=== PATIENT | male | born 1975 | race Caucasian/White ===

== ENCOUNTER 2017-01-11 13:31 | Emergency (ER) | payer OTHER ==
[2017-01-11 13:39] VITALS: BP 156/99
[2017-01-11] MEDS ORDERED: IBUPROFEN 400 MG TABLET PO STA (13:53)
--- NOTE | 2017-01-11 13:56 | ED Physician Documentation ---
History of Present Illness - Stated complaint Stated Complaint: LEFT CALF PAIN - Chief complaint Chief Complaint: Ext Problem - Additonal information Additional information: hx from pt 41 [address] [place] male playing volleyball felt a snap to his midial mid calf severe pain cant walk Review of Systems Musculoskeletal: reports: Pain with weight bearing PD PAST MEDICAL HISTORY - Past Medical History Past Medical History: Yes Cardiovascular: Hypertension - Past Surgical History Past Surgical History: No - Present Medications Home Medications: Ambulatory Orders Medication Instructions Recorded Confirmed Lisinopril 20 mg ORAL DAILY 01/11/17 01/11/17 - Allergies Allergies/Adverse Reactions: Allergies Allergy/AdvReac Type Severity Reaction Status Date / Time No Known Drug Allergies Allergy Verified 01/11/17 13:39 - Social History Does the pt smoke?: No Smoking Status: Never smoker Does the pt have substance abuse?: No PD ED PE NORMAL - Vitals Vital signs reviewed: Yes - Extremities Extremities: Other (LLE: achilles intact, nl white test, TTP with muscle defect distal medial distal gastroc mm, cmpt soft, MSV intact) Results - Vitals Vitals: Vital Signs - 24 hr 01/11/17 13:36 Temperature 36.7 C Heart Rate 111 H Respiratory 16 Rate Blood Pressure 156/99 H O2 Saturation 99 Oxygen O2 Source Room air Departure - Departure Disposition: 01 Home, Self Care Clinical Impression: Gastrocnemius muscle rupture Qualifiers: Encounter type: initial encounter Laterality: left Qualified Code(s): S86.112A - Strain of other muscle(s) and tendon(s) of posterior muscle group at lower leg level, left leg, initial encounter Condition: Good Instructions: Gastrocnemius Muscle Tear Follow-Up: STEPHANIE Sy [Provider Group] (orthopedics next week ) Comments: The exam indicates you did not rupture your Achilles tendon but rather ruptured the medial calf muscle. This will likely heal on its own - physical therapy will help you heal faster It is unlikely you will need surgery but please follow up with orthopedics at [facility] for further care next week Motrin tylenol and ice as needed for the pain Use the crutches - no weight bearing for at least a week, then may advance as tolerated if OK with orthopedics Also please get your blood pressure rechecked when you feel better - it was high today Forms: Activity restrictions
[2017-01-11] MEDS ORDERED: IBUPROFEN 800 MG TABLET PO ONE (14:01)
== END 2017-01-11 14:11 | disposition home or self-care (01) ==
LOC: ED 13:31
DX: S86.112A Strain of other muscle(s) and tendon(s) of posterior muscle group at lower leg level, left leg, initial encounter (principal); X58.XXXA Exposure to other specified factors, initial encounter; Y93.68 Activity, volleyball (beach) (court); I10 Essential (primary) hypertension
CPT/HCPCS: 99283; A9270

== ENCOUNTER 2017-03-12 12:00 | Outpatient (CLI) | payer OTHER ==
--- NOTE | 2017-03-12 14:38 | MRI Report ---
EXAM: LEFT CALF/TIBIA MRI WITHOUT CONTRAST EXAM DATE: 03/12/2017 01:43 PM. CLINICAL HISTORY: Volume on injury. Torn left gastrocnemius. Calf pain and swelling. COMPARISON: Ankle MRI performed the same date. TECHNIQUE: Multiplanar, multisequence T1-weighted and fluid-sensitive sequences of the calf/tibia wit hout contrast. Other: None. FINDINGS: Bones: Marrow signal appears normal. No fractures are identified. No evidence of stress reaction. Musculotendinous structures: There is thickening and increased signal involving the medial head gastr ocnemius tendon at the distal musculotendinous junction with tiny foci of fluid signal. Associated in creased T2 signal within the distal fibers of the medial head gastrocnemius muscle. The underlying so leus musculature as well as the lateral head gastrocnemius are normal. Remaining musculotendinous str uctures appear normal. No muscle atrophy or fatty replacement. IMPRESSION: 1. Mild strain and low-grade partial tear at the distal musculotendinous junction of the medial head gastrocnemius. Remaining visualized gastrocnemius and soleus musculature and Achilles tendon appear i ntact. [facility] MUSCULOSKELETAL RADIOLOGY SECTION Referring Provider Line: [phone] SITE ID: [id number]
--- NOTE | 2017-03-12 16:41 | MRI Report ---
EXAM: LEFT ANKLE/HINDFOOT MRI WITHOUT CONTRAST EXAM DATE: 03/12/2017 01:43 PM. CLINICAL HISTORY: Torn left gastrocnemius. COMPARISON: Left calf MRI performed the same date. TECHNIQUE: Multiplanar, multisequence T1-weighted and fluid-sensitive sequences of the ankle/hindfoot without contrast. Other: None. FINDINGS: Bones and articular surfaces: No significant ankle joint effusion. No osteochondral lesions. No signi ficant articular cartilage defects are seen. Tiny subcortical cyst formation at the posterior margin of the calcaneus. Tiny focus of subchondral edema at the tibial plafond. No overlying articular carti cassy abnormality. Musculotendinous structures: The Achilles tendon and plantar fascia appear intact. Small volume of fl uid associated with the tibialis posterior tendon. Remaining anterior, posterior and posterolateral a nkle tendons appear intact. No muscle atrophy or fatty replacement within the [id number]. Ligaments: The anterior and posterior talofibular, calcaneofibular and deltoid ligaments appear intac t. IMPRESSION: 1. Mild tibialis posterior tenosynovitis. [facility] MUSCULOSKELETAL RADIOLOGY SECTION Referring Provider Line: [phone] SITE ID: [id number]
== END 2017-03-12 12:01 | disposition home or self-care (01) ==
LOC: DI 12:00
PROVIDERS: ATTEND Family Medicine
DX: S86.112A Strain of other muscle(s) and tendon(s) of posterior muscle group at lower leg level, left leg, initial encounter (principal); M65.862 Other synovitis and tenosynovitis, left lower leg

== ENCOUNTER 2023-11-13 10:03 | Outpatient (CLI) | payer OTHER ==
--- NOTE | 2023-11-13 11:01 | Sleep Patient Instructions ---
Sleep Center Visit Summary - Patient Visit Information Reason for Visit: Initial consultation - Patient Instructions Additional Instructions: You will continue with CPAP therapy with pressure changed to 10-14 cmH2O. Please let us know if the pressure change is uncomfortable and we can make further adjustments of the pressure. A supply prescription will be updated with your DME supplier. I have added an order to update your PAP machine. Please call the office to schedule a compliance follow up once you get your new device. I have also added a mask refitting for the full face mask. Please follow up with the sleep care office one month after obtaining new device. - Clinic Information Contact: [facility] [address] [place] [address] [email or web address] T: [phone]
--- NOTE | 2023-11-13 11:08 | SLEEP CARE CONSULTATION ---
Information from patient questionnaire entered by Gamaliel Medina. I have reviewed and concur with the information entered by Gamaliel Medina. This document represents the service I personally performed and the decisions made by me, Molly Patten ARNP. History of Present Illness Service Date and Time: 11/13/2023 1003 Reason for Visit: New patient, Previously diagnosed sleep apnea, sleep apnea on CPAP therapy Chief Complaint: reports: Snoring Date of Onset: 3 - 5 min Usual bedtime: 10:00 alison Time it takes to fall asleep: 30 min Snores at night: Yes Observed to quit breathing while asleep: Yes Sleeps alone due to snoring: Yes Number of times waking at night: Don't know Reasons for waking at night: reports: Snoring Toss, Turn, or Twitch while sleeping: Yes Recalls having dreams: No Usually gets out of bed at: 8:00 Feels refreshed in the morning: Yes Morning headache: No Sleepy or fatigued during the day: Yes Ever fallen asleep while driving: No Takes day naps: No Dreams during day naps: No Prior sleep studies: Yes Year and Where: 2015 [facility] Type of Sleep Study: Polysomnography Additional HPI information: EVANGELINA AMES was previously diagnosed to have moderate, AHI 15.2, obstructive sleep apnea-hypopnea syndrome in 2016 through [facility] and comes in today to establish care for CPAP therapy. He has not had a follow up with sleep provider since 2016. He tried to get a mask change through his DME and had to re-establish care with sleep provider. - Parasomnia Symptoms Ever been unable to move upon waking from sleep: No Walks in sleep: No Talks in sleep: No Ever acted out dreams in sleep: No Ever felt weak in the knees when startled or emotional: No Bothered by creepy, crawly, restless sensations in legs: No Problems with memory or concentration: No CPAP Compliance Data - Data Reviewed with Patient Average duration of nightly device use: 3 h 37 min Compliance rate %: 2 ( days) Current pressure setting (cmH2O): 7-12 Average residual AHI: 4.7 Central apnea: 2.7 Obstructive apnea: 1.8 Hypopnea: 0.2 Average large leak: 2.7 L/min Compliance data discussion: He has a ResMed Airsense 10 that was setup on 02/07/2016. He is using [employer] for his supplies. He is using a nasal cushion. Subjective Missed days of use due to: reports: mask issues Patient concerns: reports: dry mouth, nose, throat (dry mouth and throat). denies: aerophagia, mask discomfort, air blowing in eyes, mask leak noise, condensation in mask/hose, nasal congestion, epistaxis Observed to snore while using device: No Current pressure setting perceived as: too low On therapy, patient: reports: sleeping better, awakening more refreshed, being more awake and alert during the day, more rested overall. 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 Patient is and lives in [place]. Have you smoked in the past 12 months: No Alcohol use: Yes Alcohol amount and frequency: 3 - 6 on weekends only Caffeine use: Yes Caffeine amount and frequency: One daily Family History Family history of sleep disordered breathing: Yes Family Hx Sleep Apnea: Mother: Snoring Allergies and Home Medications Known drug allergies: No Drug allergies reviewed: Yes Home medication list reviewed: Yes (as listed) Allergy and home medication list: Allergies No Known Drug Allergies Allergy (Verified 11/13/23 10:48) Home Medications Losartan Potassium See Rx Instructions .ROUTE .COMPLEX 11/13/23 [History] Review of Systems Weight gain over past 5 years: 0 Weight loss over past 5 years: 0 Cardiovascular: reports: high blood pressure Gastrointestinal: denies: heartburn Neurological: denies: headaches Psychiatric: denies: anxiety, depression Ear/Nose/Throat: reports: other (Ringing in ears). denies: tonsillectomy Physical Exam Vital signs obtained and entered by: Molly Sherman NP Blood Pressure: 147/100 Cuff size: long (left arm) Heart Rate: 81 O2 Saturation: 97 Height: 5 ft 11 in Weight: 185 lb 12.8 oz Body Mass Index: 25.9 BMI Classification: Overweight Neck circumference: 15.75 Nostrils: patent to airflow Mouth and throat: narrow oropharynx Soft palate: long Hard palate: normal Uvula: normal Tongue: enlarged in size with teeth allen on lateral edges Tonsils: 1+ Neck: normal w/o lymphadenopathy or thyromegaly Heart: regular rate and rhythm Lungs: clear bilaterally Impression and Plan 1. Obstructive Sleep Apnea-Hypopnea Syndrome, moderate, with poor treatment compliance and good apnea control. On CPAP therapy, the patient has better sleep quality and is more rested overall. He uses a nasal cushion and ends up having very severe oral and throat dryness because of oral venting. This has affected his consistent use of his CPAP. He would like to try a fullface mask to see if this will help reduce the oral dryness. He is committed to regularly using his CPAP. He has a ResMed Airsense 10 which was set up in 2016. He is eligible for a new device. The patients CPAP is over 5 years old and of reasonable use. Thus, the CPAP will be updated. The new CPAPs also have a better humidity system which could assist control of patients dryness symptoms. A DWO prescription will be made. Compliance guidelines for new device and follow up discussed. He states the pressure feels a little low, his residual AHI is at 4.7. The patients pressure will be changed to autoCPAP 10-14 cmH20 for patient comfort and to reduce AHI. Patient advised to contact me if pressure change is uncomfortable so that it can be adjusted. Goals for apnea control discussed.Patient's apnea severity and rationale for treatment to reduce apnea, improve sleep quality and reduce cardiovascular and cerebrovascular events was reviewed. I also reviewed the benefit of consistent device use of CPAP for hypertension. 2. Overweight, unspecified. Currently patients BMI is 25.9. Obesity increases the risk of apnea, CPAP pressure requirements and overall health risks especially cardiovascular and diabetes. Thus patient is advised to maintain healthy weight. * Change auto CPAP pressure to 10-14 cmH2O * Update machine * Mask refitting for full face mask * Update supplies * Notify me if snoring with mask or feeling that the pressure is too much or too little * Attempt to lose weight * Call this office if any problems using CPAP * Return for follow up one month after obtaining new device, or sooner if concerns arise Adjust device pressure to (cmH2O): 10-14 Counseling Topics: Spare mask, Weight loss health impact Prescriptions: Auto CPAP, Device supplies (and mask fitting for full face mask) Visit Type: In Office Time Spent with Patient (minutes): 34 Provider Statement: I spent 100% of the Face to Face Visit with the patient with greater than 50% spent counseling the patient and coordination of care.
[2023-11-13 11:38] VITALS: BP 147/100; O2SAT 97
== END 2023-11-13 10:04 | disposition home or self-care (01) ==
LOC: SC 10:03
PROVIDERS: ATTEND Nurse Practitioner Family
DX: G47.33 Obstructive sleep apnea (adult) (pediatric) (principal); E66.3 Overweight; Z68.25 Body mass index [BMI] 25.0-25.9, adult
CPT/HCPCS: 99203; 99212